=== PATIENT | female | born 1975 | race Caucasian/White ===

== ENCOUNTER 2017-08-07 11:07 | Day surgery (SDC) | payer OTHER ==
[~2017-08-07] VITALS: Ht 152.4 cm; Wt 113.6 kg
[2017-08-07] MEDS ORDERED: LIDOCAINE 1%, 2ML ONE (11:37)
[2017-08-07 11:40] VITALS: BP 140/91
[2017-08-07 11:44] LABS: HCG UR LOT HCG7030192
[2017-08-07] MEDS ORDERED: LACTATED RINGERS 1,000 ML IV SCH (11:46)
[2017-08-07] MEDS ORDERED: ESCI10TA10 PO (11:48)
[2017-08-07 11:54] LABS: HCG UR OBC PASS
[2017-08-07] MEDS ORDERED: LIDOCAINE 1%, 2ML SQ PRN (12:00)
[2017-08-07] MEDS ORDERED: FENTANYL PF 100 MCG/2ML IV PRN (12:00)
[2017-08-07] MEDS ORDERED: MEPERIDINE/PF 25MG/0.5ML IVPush PRN (12:00)
[2017-08-07] MEDS ORDERED: ACETAMINOPHEN 325 MG TABLET PO PRN (12:00)
[2017-08-07] MEDS ORDERED: OXYcodone 5 MG/5 ML ORAL.SOL UDC PO PRN (12:00)
[2017-08-07] MEDS ORDERED: HYDROmorphone 1 MG/ML, 1ML IV PRN (12:00)
[2017-08-07] MEDS ORDERED: ONDANSETRON 2MG/ML, 2ML IVPush PRN (12:00)
[2017-08-07] MEDS ORDERED: MIDAZOLAM 1 MG/ML, 2ML ONE (12:03)
[2017-08-07] MEDS ORDERED: FENTANYL PF 100 MCG/2ML ONE (12:03)
[2017-08-07] MEDS ORDERED: ONDANSETRON 2MG/ML, 2ML ONE (12:37)
[2017-08-07] MEDS ORDERED: PROPOFOL 10 MG/ML, 20ML ONE (12:37)
== END 2017-08-07 14:10 ==
LOC: OUT 11:07
PROVIDERS: ATTEND Internal Medicine Gastroenterology
DX: D12.0 Benign neoplasm of cecum (principal); D12.2 Benign neoplasm of ascending colon; K64.8 Other hemorrhoids; J45.909 Unspecified asthma, uncomplicated
CPT/HCPCS: 45385; 81025; 88305; J2250; J2405; J2704; J3010; J3490; J7120

== ENCOUNTER → 2018-03-13 | Outpatient (CLI) | payer OTHER ==
[~2018-03-13] MED LIST: ESCI10TA10 PO
== END | disposition home or self-care (01) ==
LOC: CFH 11:50
PROVIDERS: ATTEND Nurse Practitioner
DX: Z12.31 Encounter for screening mammogram for malignant neoplasm of breast (principal); J45.909 Unspecified asthma, uncomplicated
CPT/HCPCS: 77063; 77067

== ENCOUNTER → 2020-04-20 | Outpatient (CLI) | payer OTHER | END | disposition home or self-care (01) | LOC: CFH 08:32 | PROVIDERS: ATTEND Nurse Practitioner | DX: Z12.31 Encounter for screening mammogram for malignant neoplasm of breast (principal) | CPT/HCPCS: 77063; 77067 ==